=== PATIENT | female | born 2000 | race Caucasian/White ===

== ENCOUNTER → 2018-04-08 | Outpatient (CLI) | payer OTHER | END | disposition home or self-care (01) | LOC: LAB SHORT 19:22 → LAB EV 19:22 | DX: L08.9 Local infection of the skin and subcutaneous tissue, unspecified (principal) | CPT/HCPCS: 87070; 87075; 87077; 87147; 87186; 87205 ==

== ENCOUNTER 2018-09-02 07:50 | Day surgery (SDC) | payer OTHER ==
[~2018-09-02] VITALS: Ht 170.2 cm; Wt 70.8 kg
[2018-09-02] MEDS ORDERED: PRAZ1 PO (08:40)
--- NOTE | 2018-09-02 11:07 | NUR ---
09/02/18 1107 Perla,Dahlia 1030 PT RESTING COMF IN ROOM AT THIS TIME. DENIES ANY NEEDS. TEXTED FAMILY AGAIN TO LET THEM KNOW SHE WAS READY TO GO HOME
== END 2018-09-02 11:08 | disposition home or self-care (01) ==
LOC: ORSCSDS 07:50
PROVIDERS: Otolaryngology
PROC: 0CTPXZZ Resection of Tonsils, External Approach (ICD-10-PCS; principal; 2018-09-02 08:45)
DX: G47.33 Obstructive sleep apnea (adult) (pediatric) (principal); J35.1 Hypertrophy of tonsils
CPT/HCPCS: 88304; J0330; J1100; J2250; J2405; J3010; J7120

== ENCOUNTER 2019-02-23 14:31 | Emergency (ER) | payer OTHER ==
[~2019-02-23] VITALS: Ht 162.6 cm; Wt 64.9 kg
[~2019-02-23 14:31] MED LIST: PRAZ1 PO
[2019-02-23] MEDS ORDERED: anxiety med (15:14)
[2019-02-23] MEDS ORDERED: NAPROXEN PO (16:38)
== END 2019-02-23 17:19 | disposition home or self-care (01) ==
LOC: ER 14:31
DX: S83.91XA Sprain of unspecified site of right knee, initial encounter (principal); F32.9 Major depressive disorder, single episode, unspecified; W18.30XA Fall on same level, unspecified, initial encounter; F41.9 Anxiety disorder, unspecified; Z79.899 Other long term (current) drug therapy; Z59.0 Homelessness
CPT/HCPCS: 73562-RT; 99284-25; Q3014

== ENCOUNTER 2019-02-27 00:39 | Emergency (ER) | payer OTHER ==
[~2019-02-27] VITALS: Ht 154.9 cm; Wt 65.8 kg
[~2019-02-27 00:39] MED LIST changes: +NAPROXEN PO; +anxiety med
[2019-02-27] MEDS ORDERED: FLUO10 (02:05)
== END 2019-02-27 07:06 | disposition home or self-care (01) ==
LOC: ER 00:39
DX: F32.9 Major depressive disorder, single episode, unspecified (principal); Z59.0 Homelessness; Z79.899 Other long term (current) drug therapy
CPT/HCPCS: 99284